=== PATIENT | female | born 1975 | race Caucasian/White ===

== ENCOUNTER 2017-05-22 15:19 | Emergency (ER) | payer OTHER ==
[~2017-05-22] VITALS: Ht 172.7 cm; Wt 88.0 kg
[~2017-05-22 15:19] MED LIST: ALPR.25 PO; BUPR-197 PO; DIFL150T PO; SPIR50TA21 PO; TOPA200T4 PO
[2017-05-22 15:29] VITALS: BP 134/76; PULSE 86; RESP 16; TEMP 98.5; O2SAT 99
[2017-05-22] MEDS ORDERED: DIFL150T PO (16:47)
--- NOTE | 2017-05-22 16:52 | PD ---
HPI . Yeast infection Chief Complaint: [employer] De[employer] Problem/Complaint Time Seen by Provider: 16:32 Travel History International Travel<30 days: No Contact w/Intl Traveler<30days: No Traveled to known affect area: No History of Present Illness HPI Patient presents stating that she's got a yeast infection. She states that she gets one about once a year and she is having the exact same symptoms now. Her symptoms have been unrelieved by [id number] medications. Her symptoms are getting worse. It is now associated with external genital excoriation. She states that she has had previous gastric bypass surgery causing a malabsorption syndrome. She usually needs 3 doses of Diflucan to treat her yeast infections. PFSH Past Medical History Anxiety: Yes Depression: Yes Cancer: No Cardiovascular Problems: No Cerebrovascular Accident: No Diabetes: No Diminished Hearing: No Endocrine: No Gastrointestinal Disorders: Yes (HX OF ACID REFLUX, HX IRRITABLE BOWEL, HX OF FREQUENT N/V WITH LAP BAND) Genitourinary: No Headaches: No Hepatitis: No Hiatal Hernia: Yes Hypertension: Yes (HX. DURING (PRE-ECLAPMP)) Immune Disorder: No Implanted Vascular Access Dvce: Yes Musculoskeletal: No Neurologic: Yes (HX OF CHILDHOOD EPILEPSY AND SEIZURE RECURRENCE 2010) Psychiatric: Yes (ANXIETY--CONTROLLED) Reproductive: No Respiratory: No Migraines: No Pneumonia: Yes Seizures: Yes Thyroid Disease: Yes (NOT CURRENTLY ON MEDS) : 3 Para: 3 Miscarriage: 0 : 0 Ovarian Cysts: Yes ("Polycystic ovaries,emergency surgery when teenager,cyst removed") Tubal Ligation: Yes (2001) Past Surgical History Abdominal Surgery: Yes (LAP. BAND 2009,CHOLECYSTECTOMY 2010, LAP BAND REMOVAL 03/2014, SHANAE&Y ') Body Medical Devices: HX OF LAP BAND--REMOVED Section: Yes (2001) Cholecystectomy: Yes Ear Surgery: No Endocrine Surgery: No Eye Surgery: No Gynecologic Surgery: Yes (TUBAL LIGATION, LAP. FOR OVARIAN CYST, CSECTION) Joint Replacement: No Neurologic Surgery: No Oral Surgery: Yes (TONSILLECTOMY, WISDOM TEETH REMOVED) Pacemaker: No Thoracic Surgery: No Tonsillectomy: Yes Other Surgery: Yes (NEW LAP BAND SX 06/2014) Social History Alcohol Use: No Tobacco Use: No Substance Use: No Allergies-Medications (Allergen,Severity, Reaction): Coded Allergies: doxycycline (Unverified Allergy, Severe, throat closes up, 05/22/17) penicillin G (Unverified Adverse Reaction, Unknown, "seizures", 05/22/17) PT STATES SHE IS NOT ALLERGIC. HAS NO BAD RESPONSE TO ANY MEDS IN PCN FAMILY Reported Meds & Prescriptions Reported Meds & Active Scripts Active Diflucan (Fluconazole) 150 Mg Tab 150 Mg PO DAILY 3 Days Diflucan 150 mg (Fluconazole) 150 Mg Tab 150 Mg PO TODAY Reported Spironolactone 50 Mg Tab 50 Mg PO BID Wellbutrin (Bupropion HCl) 100 Mg Tab 100 Mg PO BID Topamax (Topiramate) 200 Mg Tab 200 Mg PO HS Xanax 0.25 Mg (Alprazolam) 0.25 Mg Tab 0.25 Mg PO TID PRN PATIENT USUALLY TAKES 1-2 TABS HS Review of Systems Except as stated in HPI: all other systems reviewed are Neg Physical Exam Narrative GENERAL: Awake and alert and in no acute distress. SKIN: Warm and dry. HEAD: Normocephalic/atraumatic. EYES: Pupils are equal. Extraocular movements are intact. NECK: Normal range of motion. RESPIRATORY: Nonlabored respirations. MUSCULOSKELETAL: Atraumatic. NEUROLOGICAL: Nonfocal. PSYCHIATRIC: Appropriate mood and affect. Data Data Last Documented VS Vital Signs Date Time Temp Pulse Resp B/P (MAP) Pulse Ox O2 Delivery O2 Flow Rate FiO2 05/22/17 15:29 98.5 86 16 134/76 (95) 99 Orders Orders Ed Discharge Order (05/22/17 16:48) [facility] Medical Decision Making Medical Screen Exam Complete: Yes Emergency Medical Condition: Yes Differential Diagnosis Differential diagnosis of vaginal discharge includes but is not limited to physiologic discharge, yeast infection, bacterial vaginosis, sexually transmitted disease. Narrative Course Presents complaining with a yeast infection. She has had them before. She states that her symptoms are exactly the same. I will treat her presumptively with Diflucan. Diagnosis Primary Impression: Yeast vaginitis Patient Instructions: General Instructions, Vaginitis (ED) Departure Forms: Tests/Procedures Scripts Fluconazole (Diflucan) 150 Mg Tab 150 MG PO DAILY for Infection for 3 Days, #3 TAB 0 Refills Prov: Amalia Garnica MD 05/22/17 Disposition: 01 DISCHARGE HOME Condition: Stable Amalia Garnica MD May 22, 2017 16:52
[2017-05-22] MEDS ORDERED: BUPR150XL PO (16:55)
[2017-05-22] MEDS ORDERED: ALPR1TAB3 PO (16:55)
== END 2017-05-22 17:07 | disposition home or self-care (01) ==
LOC: PHED 15:19
DX: B37.3 Candidiasis of vulva and vagina (principal); F32.9 Major depressive disorder, single episode, unspecified; K58.9 Irritable bowel syndrome, unspecified; K21.9 Gastro-esophageal reflux disease without esophagitis; Z98.84 Bariatric surgery status
CPT/HCPCS: 99283

== ENCOUNTER 2017-06-10 20:34 | Emergency (ER) | payer OTHER ==
[~2017-06-10] VITALS: Ht 172.7 cm; Wt 88.0 kg
[~2017-06-10 20:34] MED LIST changes: -ALPR.25 PO; +ALPR1TAB3 PO; -BUPR-197 PO; +BUPR150XL PO; -SPIR50TA21 PO; -TOPA200T4 PO
[2017-06-10 20:37] VITALS: BP 140/76; PULSE 99; RESP 18; TEMP 98.4; O2SAT 97
[2017-06-10] MEDS ORDERED: SPIR100T PO (20:59)
[2017-06-10] MEDS ORDERED: TOPI200 PO (20:59)
[2017-06-10] MEDS ORDERED: PERC5TAB12 PO (21:58)
--- NOTE | 2017-06-10 21:58 | PD ---
HPI Chief Complaint: Fall Time Seen by Provider: 21:47 Travel History International Travel<30 days: No Contact w/Intl Traveler<30days: No Traveled to known affect area: No History of Present Illness HPI The patient is a 42-year-old female that fell on her coccyx at approximately 8 PM tonight. She complains of pain in the coccygeal area. She does not plan to have anymore children. The pain level is sharp pain, throbbing and stabbing and a 6/10. PFSH Past Medical History Anxiety: Yes Depression: Yes Cancer: No Cardiovascular Problems: No Cerebrovascular Accident: No Diabetes: No Diminished Hearing: No Endocrine: No Gastrointestinal Disorders: Yes (HX OF ACID REFLUX, HX IRRITABLE BOWEL, HX OF FREQUENT N/V WITH LAP BAND) Genitourinary: No Headaches: No Hepatitis: No Hiatal Hernia: Yes Hypertension: Yes (HX. DURING (PRE-ECLAPMP)) Immune Disorder: No Implanted Vascular Access Dvce: Yes Medical other: Yes (SEIZURES--CHILDHOOD EPILEPSY, EPISODE APRIL 2010) Musculoskeletal: No Neurologic: Yes (HX OF CHILDHOOD EPILEPSY AND SEIZURE RECURRENCE 2010) Psychiatric: Yes (ANXIETY--CONTROLLED) Reproductive: No Respiratory: No Migraines: No Pneumonia: Yes Seizures: Yes Thyroid Disease: Yes (NOT CURRENTLY ON MEDS) Tetanus Vaccination: > 5 Years Influenza Vaccination: No ?: Not LMP: 05/31/17 : 3 Para: 3 Miscarriage: 0 : 0 Ovarian Cysts: Yes ("Polycystic ovaries,emergency surgery when teenager,cyst removed") Tubal Ligation: Yes (2001) Past Surgical History Abdominal Surgery: Yes (LAP. BAND 2009,CHOLECYSTECTOMY 2010, LAP BAND REMOVAL 03/2014, SHANAE&Y ') Body Medical Devices: HX OF LAP BAND--REMOVED Section: Yes (2001) Cholecystectomy: Yes Ear Surgery: No Endocrine Surgery: No Eye Surgery: No Gynecologic Surgery: Yes (TUBAL LIGATION, LAP. FOR OVARIAN CYST, CSECTION) Joint Replacement: No Neurologic Surgery: No Oral Surgery: Yes (TONSILLECTOMY, WISDOM TEETH REMOVED) Pacemaker: No Thoracic Surgery: No Tonsillectomy: Yes Other Surgery: Yes (NEW LAP BAND SX 06/2014) Social History Alcohol Use: No Tobacco Use: No Substance Use: No Allergies-Medications (Allergen,Severity, Reaction): Coded Allergies: doxycycline (Verified Allergy, Severe, throat closes up, 06/10/17) penicillin G (Verified Adverse Reaction, Unknown, "seizures", 06/10/17) PT STATES SHE IS NOT ALLERGIC. HAS NO BAD RESPONSE TO ANY MEDS IN PCN FAMILY Reported Meds & Prescriptions Reported Meds & Active Scripts Active Reported Spironolactone 100 Mg Tab 100 Mg PO BIDPC Topamax (Topiramate) 200 Mg Tab 200 Mg PO BID Wellbutrin Xl 24 HR (Bupropion HCl) 150 Mg Tab 150 Mg PO DAILY Alprazolam 1 Mg Tab 1 Mg PO Q8H PRN Review of Systems Except as stated in HPI: all other systems reviewed are Neg Physical Exam Narrative GENERAL: The patient is alert, oriented 3 in moderate apparent distress with her coccygeal pain. Her vital signs are normal except for heart rate of 99. SKIN: Focused skin assessment warm/dry. HEAD: Atraumatic. Normocephalic. EYES: Pupils equal and round. No scleral icterus. No injection or drainage. ENT: No nasal bleeding or discharge. Mucous membranes pink and moist. NECK: Trachea midline. No JVD. CARDIOVASCULAR: Regular rate and rhythm. No murmur appreciated. RESPIRATORY: No accessory muscle use. Clear to auscultation. Breath sounds equal bilaterally. GASTROINTESTINAL: Abdomen soft, non-tender, nondistended. Hepatic and splenic margins not palpable. MUSCULOSKELETAL: No obvious deformities. No clubbing. No cyanosis. No edema. The coccygeal area shows no external bruising or redness but is exquisitely tender around the coccyx. No obvious deformities noted. No break in the skin is noted. NEUROLOGICAL: Awake and alert. No obvious cranial nerve deficits. Motor grossly within normal limits. Normal speech. PSYCHIATRIC: Appropriate mood and affect; insight and judgment normal. Data Data Last Documented VS Vital Signs Date Time Temp Pulse Resp B/P (MAP) Pulse Ox O2 Delivery O2 Flow Rate FiO2 06/10/17 20:37 98.4 99 18 140/76 (97) 97 MDM Medical Decision Making Medical Screen Exam Complete: Yes Emergency Medical Condition: Yes Medical Record Reviewed: Yes Differential Diagnosis Contusion coccyx, fracture coccyx, laceration skin over coccyx Narrative Course It is possible she could have a fracture of the coccyx but there is no treatment for a coccygeal fracture, particularly in a female that does not want to have children. The patient will rest and is given Percocet 5 for pain #20. Additional Instructions: Do not drink alcohol or drive on the Percocet 5. You can follow up with your primary care physician in a week or 2 if the pain is not getting better. Med/Other Pt SpecificInfo: Prescription(s) given Scripts Oxycodone-Acetaminophen (Percocet) 5-325 mg Tab 1-2 TAB PO Q6H Y for PAIN, #20 TAB 0 Refills Prov: Doug Serra MD 06/10/17 Disposition: 01 DISCHARGE HOME Condition: Stable Doug Serra MD Jun 10, 2017 21:58
== END 2017-06-10 22:06 | disposition home or self-care (01) ==
LOC: PHEFT 20:34
DX: S39.92XA Unspecified injury of lower back, initial encounter (principal); R56.9 Unspecified convulsions; W19.XXXA Unspecified fall, initial encounter
CPT/HCPCS: 99283